=== PATIENT | female | born 1980 ===

== ENCOUNTER 2017-09-20 16:22 | Emergency (ER) | payer OTHER ==
[2017-09-20 16:44] VITALS: BP 105/68; PULSE 70; RESP 18; TEMP 98.5; O2SAT 99
[2017-09-20 16:53] VITALS: BMI 27.3
--- NOTE | 2017-09-20 17:14 | C.PDOC ---
History Of Present Illness 37 y/o female presents to the ER complaining of sinus pressure, runny nose, and non-productive cough which has been occurring intermittently over the past 6 months. Patient is also complaining of itchy/ watery eyes. Patient denies having fever, chills, SOB, and CP. Time Seen by Provider: 09/20/17 16:43 Chief Complaint (Nursing): Cough, Cold, Congestion History Per: Patient History/Exam Limitations: no limitations Onset/Duration Of Symptoms: Days Current Symptoms Are (Timing): Still Present Associated Symptoms: denies: Fever, Chills Severity: Moderate Past Medical History Reviewed: Historical Data, Nursing Documentation, Vital Signs Vital Signs: Last Vital Signs Temp 98.5 F 09/20/17 16:43 Pulse 70 09/20/17 16:43 Resp 18 09/20/17 16:43 BP 105/68 09/20/17 16:43 Pulse Ox 99 09/20/17 17:14 - Medical History PMH: No Chronic Diseases Surgical History: No Surg Hx Family History: States: No Known Family Hx - Social History Hx Alcohol Use: No Hx Substance Use: No - Immunization History Hx Tetanus Toxoid Vaccination: Yes Hx Influenza Vaccination: Yes Review Of Systems Except As Marked, All Systems Reviewed And Found Negative. Constitutional: Negative for: Fever, Chills Eyes: Positive for: Other (itchy/watery eyes) ENT: Positive for: Nose Discharge (runny nose) Cardiovascular: Negative for: Chest Pain Respiratory: Positive for: Cough (non-productive cough). Negative for: Shortness of Breath Physical Exam - Physical Exam Appears: Non-toxic, No Acute Distress Skin: Normal Color, Warm Head: Atraumatic, Normacephalic Eye(s): bilateral: Normal Inspection Ear(s): Bilateral: Normal Nose: Normal, No Discharge (rhinorrhea), No Tenderness (tenderness to palpation over frontal or maxillary sinuses) Oral Mucosa: Moist Throat: Normal, No Erythema, No Exudate Neck: Supple Chest: Symmetrical Cardiovascular: Rhythm Regular Respiratory: Normal Breath Sounds, No Rales, No Rhonchi, No Wheezing Gastrointestinal/Abdominal: Normal Exam, Soft, No Tenderness Neurological/Psych: Oriented x3, Normal Speech ED Course And Treatment O2 Sat by Pulse Oximetry: 99 (RA) Pulse Ox Interpretation: Normal Progress Note: Patient given Claritin PO. Patient has been discharged with prescriptions for Claritin PO and Nasonex PO. Disposition Counseled Patient/Family Regarding: Diagnosis, Need For Followup, Rx Given - Disposition Referrals: [facility] [Outside] Disposition: HOME/ ROUTINE Disposition Time: 17:25 Condition: STABLE Prescriptions: Loratadine [Claritin] 10 mg PO DAILY #30 tab Mometasone Furoate [Nasonex] 0.05 mg NS DAILY #1 bottle Instructions: Seasonal Allergies (DC) Forms: [employer] (East Timorese) Print Language: PERUVIAN - POA Present On Arrival: None - Clinical Impression Clinical Impression: Allergic rhinitis, Seasonal allergies - Scribe Statement The provider has reviewed the documentation as recorded by the Inesibchristine Del Cid Provider Attestation: All medical record entries made by the Inesibe were at my direction and personally dictated by me. I have reviewed the chart and agree that the record accurately reflects my personal performance of the history, physical exam, medical decision making, and the department course for this patient. I have also personally directed, reviewed, and agree with the discharge instructions and disposition.
== END 2017-09-20 17:23 | disposition home or self-care (01) ==
LOC: C.ER 16:22
DX: J30.2 Other seasonal allergic rhinitis (principal)

== ENCOUNTER 2017-09-30 20:50 | Emergency (ER) | payer SELFPAY ==
[2017-09-30 20:50] VITALS: BMI 27.3
--- NOTE | 2017-09-30 21:47 | C.PDOC ---
History Of Present Illness 37-year-old female, comes in with constant non-productive cough x2 days. Patient notes associated nausea and states she feels like she will throw up from the vomiting. Denies fever or chills. Time Seen by Provider: 09/30/17 21:02 Chief Complaint (Nursing): Cough, Cold, Congestion History Per: Patient History/Exam Limitations: no limitations Onset/Duration Of Symptoms: Days Current Symptoms Are (Timing): Still Present Severity: Moderate Past Medical History Reviewed: Historical Data, Nursing Documentation, Vital Signs Vital Signs: Last Vital Signs Temp 98.2 F 09/30/17 21:51 Pulse 72 09/30/17 21:51 Resp 18 09/30/17 21:51 BP 114/72 09/30/17 21:51 Pulse Ox 99 09/30/17 21:51 Family History: States: No Known Family Hx - Social History Hx Alcohol Use: No Hx Substance Use: No - Immunization History Hx Tetanus Toxoid Vaccination: No Hx Influenza Vaccination: No Hx Pneumococcal Vaccination: No Review Of Systems Except As Marked, All Systems Reviewed And Found Negative. Constitutional: Negative for: Fever Respiratory: Positive for: Cough. Negative for: Sputum Gastrointestinal: Positive for: Nausea. Negative for: Vomiting Physical Exam - Physical Exam Appears: Non-toxic, No Acute Distress Skin: Normal Color, Warm, Dry, No Rash Head: Atraumatic, Normacephalic Eye(s): bilateral: Normal Inspection, PERRL, EOMI Nose: Normal Oral Mucosa: Moist Lips: Normal Appearing Neck: Normal ROM, Supple Chest: Symmetrical Cardiovascular: Rhythm Regular, No Friction Rub, No Murmur Respiratory: Normal Breath Sounds, No Accessory Muscle Use, No Rales, No Rhonchi , No Wheezing Gastrointestinal/Abdominal: Soft, No Tenderness Extremity: Normal ROM, No Deformity, No Swelling Neurological/Psych: Oriented x3, Normal Speech, Normal Motor Gait: Steady ED Course And Treatment O2 Sat by Pulse Oximetry: 98 (RA) Pulse Ox Interpretation: Normal Medical Decision Making Medical Decision Making: Plan: * Tessalon * Prednisone * Reassess and Disposition On re-exam, the patient reports improvement of symptoms. Lungs are CTA, heart is RRR, abdomen is soft, non-tender and tolerating PO well. Ambulatory in the ED with steady gait. follow up with the medical doctor within 1-2 days. Return if worsened. Disposition - Disposition Referrals: [facility] [Outside] Disposition: HOME/ ROUTINE Disposition Time: 21:45 Condition: GOOD Additional Instructions: follow up with the medical doctor within 1-2 days. Return if worsened. Prescriptions: Benzonatate [Tessalon Perles] 100 mg PO TID PRN #21 sgl PRN Reason: Cough predniSONE [Prednisone] 20 mg PO BID #10 tab Instructions: Upper Respiratory Infection (ED) Forms: [employer] (Maori), Work Excuse - Clinical Impression Clinical Impression: Upper respiratory infection - Scribe Statement The provider has reviewed the documentation as recorded by the Scribe (Anaya Desir) All medical record entries made by the Scribe were at my direction and personally dictated by me. I have reviewed the chart and agree that the record accurately reflects my personal performance of the history, physical exam, medical decision making, and the department course for this patient. I have also personally directed, reviewed, and agree with the discharge instructions and disposition.
[2017-09-30 21:52] VITALS: BP 114/72; PULSE 72; RESP 18; TEMP 98.2
[2017-09-30 22:20] VITALS: O2SAT 98
== END 2017-09-30 21:52 | disposition home or self-care (01) ==
LOC: C.ER 20:50
DX: J06.9 Acute upper respiratory infection, unspecified (principal)

== ENCOUNTER 2018-06-20 16:32 | Emergency (ER) | payer OTHER ==
[2018-06-20 16:39] VITALS: BP 115/79; PULSE 83; TEMP 98.7; O2SAT 96; BMI 26.2
--- NOTE | 2018-06-20 17:21 | C.PDOC ---
Time Seen by Provider: 06/20/18 16:56 Chief Complaint (Nursing): ENT Problem History Per: Patient Onset/Duration Of Symptoms: Days (about 3 months) Current Symptoms Are (Timing): Still Present Location Of Pain: Sinus/es Associated Symptoms: Nasal Congestion Severity: Moderate Additional History Per: Prior Records Past Medical History Reviewed: Historical Data, Nursing Documentation, Vital Signs Vital Signs: Last Vital Signs Temp 98.7 F 06/20/18 16:38 Pulse 83 06/20/18 16:38 Resp BP 115/79 06/20/18 16:38 Pulse Ox 96 06/20/18 16:38 - Medical History PMH: No Chronic Diseases Family History: States: Unknown Family Hx - Social History Hx Alcohol Use: No Hx Substance Use: No - Immunization History Hx Tetanus Toxoid Vaccination: No Hx Influenza Vaccination: No Hx Pneumococcal Vaccination: No Review Of Systems Except As Marked, All Systems Reviewed And Found Negative. Constitutional: Negative for: Fever, Weakness Eyes: Negative for: Vision Change ENT: Positive for: Nose Congestion, Throat Pain Cardiovascular: Negative for: Chest Pain Gastrointestinal: Negative for: Vomiting, Abdominal Pain Musculoskeletal: Negative for: Neck Pain Skin: Negative for: Rash Neurological: Negative for: Weakness, Numbness Physical Exam - Physical Exam Appears: Non-toxic, No Acute Distress Skin: Normal Color, Warm, Dry, No Rash Head: Atraumatic, Normacephalic, Tenderness (over sinuses) Eye(s): bilateral: Normal Inspection, PERRL, EOMI Ear(s): Bilateral: Normal Nose: No Epistaxis, No Septal Hematoma Throat: Normal Neck: Normal ROM, Supple Lymphatic: No Adenopathy Extremity: Normal ROM Neurological/Psych: Oriented x3, Normal Speech, Normal Cognition, Normal Cranial Nerves, Normal Motor, Normal Sensation ED Course And Treatment O2 Sat by Pulse Oximetry: 96 Pulse Ox Interpretation: Normal Medical Decision Making Medical Decision Making: Pt states that she has been using Afrin nasal spray chronically. I suspect rebound nasal congestion. Disposition Counseled Patient/Family Regarding: Diagnosis, Need For Followup, Rx Given - Disposition Referrals: [facility] [Outside] Disposition: HOME/ ROUTINE Disposition Time: 17:21 Condition: STABLE Additional Instructions: Stop using Afrin nasal spray. Follow up in the clinic for further evaluation and treatment. Return to the ER if you develop worsening of symptoms or if you have any other concerns. Prescriptions: Amoxicillin/Clavulanate [Augmentin 875 MG-125 MG] 1 tab PO BID #20 tab Fluticasone Nasal [Flonase] 2 spr NS BID #1 bottle Guaifenesin/Pseudoephedrne HCl [Mucinex D ER 1,200-120 mg Tab] 1 each PO Q12 PRN #20 tab.er.12h PRN Reason: Nasal Congestion Instructions: Sinusitis, Adult (DC) Forms: [employer] (French) Print Language: CZECH - Clinical Impression Clinical Impression: Sinusitis
== END 2018-06-20 17:36 | disposition home or self-care (01) ==
LOC: C.ER 16:32 → EDBD 16:32 → C.ER 17:36
DX: J32.9 Chronic sinusitis, unspecified (principal)

== ENCOUNTER 2018-08-12 12:21 | Emergency (ER) | payer OTHER ==
[2018-08-12 12:21] VITALS: BMI 26.2
[2018-08-12 13:05] VITALS: BP 102/70; PULSE 79; RESP 14; TEMP 98; O2SAT 100
--- NOTE | 2018-08-12 14:57 | C.PDOC ---
History Of Present Illness 39 year old patient with a PMHx of chronic sinusitis, reports constant nasal congestion over the several weeks. The patient reports that she was taking a nasal spray which was initially helping and now is not working. Denies fever, nose bleed, headache, vomiting, change in vision, or neck pain. Time Seen by Provider: 08/12/18 13:26 Chief Complaint (Nursing): ENT Problem History Per: Patient History/Exam Limitations: None Onset/Duration Of Symptoms: Other (several weeks ) Current Symptoms Are (Timing): Still Present Past Medical History Reviewed: Historical Data, Nursing Documentation, Vital Signs Vital Signs: Last Vital Signs Temp 98 F 08/12/18 13:01 Pulse 79 08/12/18 13:01 Resp 14 08/12/18 13:01 BP 102/70 08/12/18 13:01 Pulse Ox 100 08/12/18 13:01 - Medical History PMH: No Chronic Diseases Denies: Chronic Kidney Disease Surgical History: No Surg Hx Family History: States: Unknown Family Hx - Social History Hx Alcohol Use: No Hx Substance Use: No - Immunization History Hx Tetanus Toxoid Vaccination: No Hx Influenza Vaccination: Yes Hx Pneumococcal Vaccination: No Review Of Systems Except As Marked, All Systems Reviewed And Found Negative. Constitutional: Negative for: Fever Eyes: Negative for: Vision Change ENT: Positive for: Nose Congestion. Negative for: Nose Discharge Gastrointestinal: Negative for: Vomiting Musculoskeletal: Negative for: Neck Pain Neurological: Negative for: Headache Physical Exam - Physical Exam Appears: Non-toxic, No Acute Distress Skin: Normal Color, Warm, Dry Head: Atraumatic, Other (left maxillary sinus tenderness ) Eye(s): bilateral: Normal Inspection, PERRL, EOMI Ear(s): Bilateral: Normal Oral Mucosa: Moist Throat: Normal, No Erythema, No Exudate Neck: Normal ROM, Supple Chest: Symmetrical, No Deformity Cardiovascular: Rhythm Regular, No Friction Rub, No Murmur Respiratory: Normal Breath Sounds, No Rales, No Rhonchi, No Wheezing Gastrointestinal/Abdominal: Soft, No Tenderness Extremity: Normal ROM, No Swelling Neurological/Psych: Oriented x3, Normal Speech, Normal Cognition, Normal Motor Gait: Steady ED Course And Treatment O2 Sat by Pulse Oximetry: 100 (on RA) Pulse Ox Interpretation: Normal Medical Decision Making Medical Decision Making: Plan: Claritin 10mg PO Prednisone 40mg PO Disposition - Disposition Referrals: [facility] [Outside] Disposition: HOME/ ROUTINE Disposition Time: 14:55 Condition: GOOD Additional Instructions: Follow up with the medical doctor within 1-2 days. Return if worsened. 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 - Scribe Statement The provider has reviewed the documentation as recorded by the Jillian Kenyon All medical record entries made by the Scribe were at my direction and personally dictated by me. I have reviewed the chart and agree that the record accurately reflects my personal performance of the history, physical exam, medical decision making, and the department course for this patient. I have also personally directed, reviewed, and agree with the discharge instructions and disposition.
== END 2018-08-12 15:00 | disposition home or self-care (01) ==
LOC: C.ER 12:21
DX: J32.9 Chronic sinusitis, unspecified (principal); J30.2 Other seasonal allergic rhinitis

== ENCOUNTER 2018-09-19 21:54 | Emergency (ER) | payer OTHER ==
[2018-09-19 21:55] VITALS: BMI 26.2
[2018-09-19 22:01] VITALS: PULSE 70; O2SAT 99
[2018-09-19 22:03] VITALS: BP 118/76; RESP 17; TEMP 98
--- NOTE | 2018-09-19 22:57 | C.PDOC ---
History Of Present Illness 40 year old female presents to the ED c/o persistent dry cough for the past 5 days. Patient denies fever, chills, headache, rash, sore throat, rash, CP, SOB, palpitations, recent travel, sick contacts. Time Seen by Provider: 09/19/18 22:12 Chief Complaint (Nursing): Cough, Cold, Congestion History Per: Patient History/Exam Limitations: no limitations Onset/Duration Of Symptoms: Days (5) Current Symptoms Are (Timing): Still Present Recent travel outside of the [place]: No Additional History Per: Patient Past Medical History Reviewed: Historical Data, Nursing Documentation, Vital Signs Vital Signs: Last Vital Signs Temp 98 F 09/19/18 22:01 Pulse 70 09/19/18 22:01 Resp 17 09/19/18 22:01 BP 118/76 09/19/18 22:01 Pulse Ox 99 09/19/18 22:01 - Medical History PMH: No Chronic Diseases Denies: Chronic Kidney Disease Surgical History: No Surg Hx Family History: States: Unknown Family Hx - Social History Hx Alcohol Use: No Hx Substance Use: No - Immunization History Hx Tetanus Toxoid Vaccination: No Hx Influenza Vaccination: Yes Hx Pneumococcal Vaccination: No Review Of Systems Constitutional: Negative for: Fever, Chills ENT: Negative for: Nose Congestion, Throat Pain Respiratory: Positive for: Cough. Negative for: Shortness of Breath, Sputum Gastrointestinal: Negative for: Nausea, Vomiting, Abdominal Pain Skin: Negative for: Rash Neurological: Negative for: Weakness, Numbness, Headache Physical Exam - Physical Exam Appears: Non-toxic, No Acute Distress Skin: Normal Color, Warm, Dry Head: Atraumatic, Normacephalic Eye(s): bilateral: Normal Inspection Ear(s): Bilateral: Normal Nose: No Discharge Oral Mucosa: Moist Throat: Normal, No Erythema, No Exudate, Other (uvula midline, airway patent) Neck: Normal ROM, Supple Chest: Symmetrical Cardiovascular: Rhythm Regular Respiratory: Normal Breath Sounds, No Rales, No Rhonchi, No Wheezing Neurological/Psych: Oriented x3, Normal Speech, Normal Cognition ED Course And Treatment O2 Sat by Pulse Oximetry: 99 (ON RA) Pulse Ox Interpretation: Normal - Radiology CXR: Interpreted by Me, Viewed By Me CXR Interpretation: Yes: No Acute Disease. No: Infiltrates, Fracture Progress Note: Plan: - CXR. - Zithromax 500 mg PO. Imaging results were discussed with patient. Patient was prescribed Zithromax for home as well as cough medications. Patient afebrile, breathing without difficulty and stable for D/C. Patient advised to follow up with PMD/clinic. Disposition - Disposition Referrals: [facility] at [facility] [Outside] Disposition: HOME/ ROUTINE Disposition Time: 22:56 Condition: STABLE Additional Instructions: Follow up in Clinic within 1-2 days. Return to ED if feel worse. 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 - Scribe Statement The provider has reviewed the documentation as recorded by the Scribe Bernard Dacosta All medical record entries made by the Scribchristine were at my direction and personally dictated by me. I have reviewed the chart and agree that the record accurately reflects my personal performance of the history, physical exam, medical decision making, and the department course for this patient. I have also personally directed, reviewed, and agree with the discharge instructions and disposition.
--- NOTE | 2018-09-20 08:02 | RAD ---
Chest x-ray two views HISTORY: Cough. COMPARISON: None available. FINDINGS: No focal infiltrate or effusion. Heart size within normal limits. Bibasilar breast and nipple shadows. Impression: No focal infiltrate or effusion.
== END 2018-09-19 23:30 | disposition home or self-care (01) ==
LOC: C.ER 21:54
DX: J40 Bronchitis, not specified as acute or chronic (principal)